=== PATIENT | female | born 1955 | race Caucasian/White ===

== ENCOUNTER 2018-06-10 12:31 | Emergency (ER) | payer BC ==
[2018-06-10 13:22] VITALS: BP 141/77
--- NOTE | 2018-06-10 14:51 | UC ---
Throat Pain/Nasal Juan F HPI - HPI Summary HPI Summary: 63-year-old woman comes in with a chief complaint of sore throat for 4 days. Throat pain is getting worse rather than getting better. She tries over-the- counter medications which helped slightly. No recent fevers no chest congestion or shortness of breath. No ear pain. Pain is worse with swallowing. - History of Current Complaint Chief Complaint: UCGeneralIllness Stated Complaint: ST Time Seen by Provider: 06/10/18 14:41 Pain Intensity: 8 - Allergies/Home Medications Allergies/Adverse Reactions: Allergies Allergy/AdvReac Type Severity Reaction Status Date / Time No Known Allergies Allergy Verified 06/10/18 13:19 Home Medications: Home Medications Loratadine [Allergy Relief] 2 tab PO DAILY 06/10/18 [History Confirmed 06/10/18] PMH/Surg Hx/FS Hx/Imm Hx Previously Healthy: Yes - Surgical History Surgical History: Yes Surgery Procedure, Year, and Place: 3 foot surgeries. x 2 - Social History Alcohol Use: Weekly Substance Use Type: None Smoking Status (MU): Former Smoker Review of Systems All Other Systems Reviewed And Are Negative: Yes Constitutional: Positive: Negative Skin: Positive: Negative Eyes: Positive: Negative ENT: Positive: Sore Throat, Nasal Discharge Respiratory: Positive: Negative Cardiovascular: Positive: Negative Gastrointestinal: Positive: Negative Motor: Positive: Negative Neurovascular: Positive: Negative Musculoskeletal: Positive: Negative Neurological: Positive: Negative Psychological: Positive: Negative Is Patient Immunocompromised?: No Physical Exam Triage Information Reviewed: Yes Appearance: Well-Appearing, No Pain Distress, Well-Nourished Vital Signs: Initial Vital Signs Temp 98.6 F 06/10/18 13:17 Pulse 86 06/10/18 13:17 Resp 15 06/10/18 13:17 BP 141/77 06/10/18 13:17 Pulse Ox 99 06/10/18 13:17 Vital Signs Reviewed: Yes Eye Exam: Normal Eyes: Positive: Conjunctiva Clear ENT: Positive: Pharyngeal erythema, TMs normal Neck exam: Normal Neck: Positive: Supple Respiratory Exam: Normal Respiratory: Positive: Lungs clear, Normal breath sounds, No respiratory distress Cardiovascular: Positive: RRR Musculoskeletal Exam: Normal Musculoskeletal: Positive: Strength Intact, ROM Intact Neurological Exam: Normal Neurological: Positive: Alert, Muscle Tone Normal Psychological Exam: Normal Psychological: Positive: Age Appropriate Behavior Skin Exam: Normal Throat Pain/Nasal Course/Dx - Course Course Of Treatment: Patient has a history of mastoid infection. Her main concern today is keeping any infection from spreading to her mastoid. We discussed viral versus bacterial infections and at this time the patient prefers to be on an antibiotic. - Differential Dx/Diagnosis Provider Diagnosis: Pharyngitis Discharge - Sign-Out/Discharge Documenting (check all that apply): Patient Departure All imaging exams completed and their final reports reviewed: No Studies - Discharge Plan Condition: Stable Disposition: HOME Prescriptions: Amoxicillin/Clavulanate TAB* [Augmentin TAB 875*] 875 mg PO BID #20 tab Patient Education Materials: Pharyngitis (ED) Referrals: Song Avina MD [Primary Care Provider] - Additional Instructions: FOLLOW UP WITH YOUR DOCTOR IF NOT COMPLETELY IMPROVED. GET RECHECKED FOR ANY WORSENING OF YOUR CONDITION OR QUESTIONS OR CONCERNS. - Billing Disposition and Condition Condition: STABLE Disposition: Home
== END 2018-06-10 14:59 | disposition home or self-care (01) ==
LOC: UCCORT 12:31
DX: J02.9 Acute pharyngitis, unspecified (principal); Z87.891 Personal history of nicotine dependence
CPT/HCPCS: 87651; 99212; G0463

== ENCOUNTER 2019-02-10 10:17 | Emergency (ER) | payer BC ==
[2019-02-10 10:33] VITALS: BP 112/76
--- NOTE | 2019-02-10 10:58 | UC ---
Upper Extremity HPI - HPI Summary HPI Summary: pain right upper arm x 1 day pain is 8 out of 10 , pain is dull and achy worse with movement of the arm better with not moving the arm + injury as she tried to catch the hallman from falling felt a pop no swelling, no bruising + weakness - History of Current Complaint Chief Complaint: UCUpperExtremity Stated Complaint: RT ARM PAIN Time Seen by Provider: 02/10/19 10:38 Hx Obtained From: Patient Onset/Duration: Sudden Onset, Lasting Days - 1, Still Present Severity Initially: Moderate Severity Currently: Moderate Pain Intensity: 8 Location Of Pain: Is Discrete @ - right upper arm Character: Dull, Aching Aggravating Factor(s): Movement, Lifting, Flexion, Extension, Internal/External Rotation Alleviating Factor(s): Rest Associated Signs And Symptoms: Positive: Weakness. Negative: Swelling, Redness , Bruising, Fever, Numbness/Tingling - Allergies/Home Medications Allergies/Adverse Reactions: Allergies Allergy/AdvReac Type Severity Reaction Status Date / Time No Known Allergies Allergy Verified 02/10/19 10:32 PMH/Surg Hx/FS Hx/Imm Hx Cardiovascular History: Hypertension - Surgical History Surgical History: Yes Surgery Procedure, Year, and Place: 3 foot surgeries. x 2 - Family History Known Family History: Positive: Hypertension - Social History Alcohol Use: Daily Alcohol Amount: 2 LIQUOR DRINKS Substance Use Type: None Smoking Status (MU): Former Smoker Review of Systems All Other Systems Reviewed And Are Negative: Yes Constitutional: Positive: Negative Skin: Positive: Negative Eyes: Positive: Negative Is Patient Immunocompromised?: No Physical Exam Triage Information Reviewed: Yes Appearance: Well-Appearing, Well-Nourished, Pain Distress Vital Signs: Initial Vital Signs Temp 98.1 F 02/10/19 10:29 Pulse 81 02/10/19 10:29 Resp 16 02/10/19 10:29 BP 112/76 02/10/19 10:29 Pulse Ox 100 02/10/19 10:29 Vital Signs Reviewed: Yes Eye Exam: Normal Eyes: Positive: Conjunctiva Clear ENT: Positive: Normal ENT inspection, Hearing grossly normal, Pharynx normal Neck: Positive: Supple, Nontender, No Lymphadenopathy Respiratory: Positive: Chest non-tender, Lungs clear, Normal breath sounds Cardiovascular: Positive: RRR, No Murmur, Pulses Normal Musculoskeletal: Positive: Other: - right upper arm: no swelling , no tendernss , no bruisting pain with active and pasive ROM . limited ROM on flexion and abduction limited strength Diagnostics - Radiology No standard instances Radiology Interpretation Completed By: Radiologist Summary of Radiographic Findings: xray right shoulder : MILD OSTEOARTHRITIS. NO ACUTE OSSEOUS INJURY. IF SYMPTOMS PERSIST, RECOMMEND REPEAT IMAGING. Upper Extremity Course/Dx - Differential Dx/Diagnosis Provider Diagnosis: Injury of right rotator cuff Discharge ED - Sign-Out/Discharge Documenting (check all that apply): Patient Departure All imaging exams completed and their final reports reviewed: Yes - Discharge Plan Condition: Stable Disposition: HOME Patient Education Materials: Rotator Cuff Injury (ED) Referrals: Song Avina MD [Primary Care Provider] - Juanpablo Hughes MD [Medical Doctor] - As Soon As Possible - Billing Disposition and Condition Condition: STABLE Disposition: Home
== END 2019-02-10 11:19 | disposition home or self-care (01) ==
LOC: UCCORT 10:17
DX: S46.001A Unspecified injury of muscle(s) and tendon(s) of the rotator cuff of right shoulder, initial encounter (principal); M19.011 Primary osteoarthritis, right shoulder; I10 Essential (primary) hypertension; Z87.891 Personal history of nicotine dependence; X58.XXXA Exposure to other specified factors, initial encounter; Y92.9 Unspecified place or not applicable
CPT/HCPCS: 99211; G0463

== ENCOUNTER 2019-03-24 07:17 | Emergency (ER) | payer BC ==
[2019-03-24 07:31] VITALS: BP 118/80
--- NOTE | 2019-03-24 07:44 | UC ---
Ear Complaint HPI - HPI Summary HPI Summary: 63 yo woman with a history of past ear infection (states "mastoiditis"--treated with one dose of iv antibiotics so likely not) presents for evaluation of right ear pain which onset one day ago. No fever, does have a sore throat. - History of Current Complaint Chief Complaint: UCEar Stated Complaint: RT EAR COMPLAINT Time Seen by Provider: 03/24/19 07:34 Hx Obtained From: Patient ?: No Onset/Duration: Sudden Onset Severity Initially: Moderate Severity Currently: Moderate Pain Intensity: 6 Alleviating Factors: Nothing Associated Signs/Symptoms: Positive: URI Symptoms - Allergies/Home Medications Allergies/Adverse Reactions: Allergies Allergy/AdvReac Type Severity Reaction Status Date / Time No Known Allergies Allergy Verified 03/24/19 07:28 Home Medications: Home Medications Ibuprofen TAB* [Advil TAB*] 400 mg PO Q6H PRN 03/24/19 [History Confirmed ] PMH/Surg Hx/FS Hx/Imm Hx Cardiovascular History: Hypertension - Surgical History Surgical History: Yes Surgery Procedure, Year, and Place: 3 foot surgeries. x 2 - Family History Known Family History: Positive: Diabetes - Social History Occupation: Employed Part-time Alcohol Use: Daily Alcohol Amount: 2 LIQUOR DRINKS Substance Use Type: None Smoking Status (MU): Former Smoker Length of Time of Smoking/Using Tobacco: On and Off for 15 Years When Did the Patient Quit Smoking/Using Tobacco: ~1998 Review of Systems All Other Systems Reviewed And Are Negative: Yes Constitutional: Positive: Negative Skin: Positive: Negative Eyes: Positive: Negative ENT: Positive: Sore Throat, Ear Ache Respiratory: Positive: Negative Cardiovascular: Positive: Negative Gastrointestinal: Positive: Negative Genitourinary: Positive: Negative Motor: Positive: Negative Neurovascular: Positive: Negative Musculoskeletal: Positive: Negative Neurological: Positive: Headache Psychological: Positive: Negative Is Patient Immunocompromised?: No Physical Exam Triage Information Reviewed: Yes Appearance: Well-Appearing, Pain Distress - mild Vital Signs: Initial Vital Signs Temp 97.9 F 03/24/19 07:27 Pulse 82 03/24/19 07:27 Resp 15 03/24/19 07:27 BP 118/80 03/24/19 07:27 Pulse Ox 97 03/24/19 07:27 ENT: Positive: Pharyngeal erythema, TM bulging - on right, TM red - on right, without mastoid tenderness or pre- or posterior auricular adenopathy. Neck: Positive: Supple, Nontender, No Lymphadenopathy Respiratory: Positive: Lungs clear, Normal breath sounds Cardiovascular: Positive: RRR, No Murmur Musculoskeletal Exam: Normal Musculoskeletal: Positive: Strength Intact Neurological: Positive: Alert Psychological Exam: Normal Skin Exam: Normal Ear Complaint Course/Dx - Course Course Of Treatment: Amoxicillin for treatment of acute right otitis media. - Differential Dx/Diagnosis Differential Diagnosis/HQI/PQRI: Cellulitis, Otitis Externa, Otitis Media, URI Provider Diagnosis: Right otitis media with effusion Discharge ED - Sign-Out/Discharge Documenting (check all that apply): Patient Departure All imaging exams completed and their final reports reviewed: No Studies - Discharge Plan Condition: Good Disposition: HOME Prescriptions: Amoxicillin PO (*) [Amoxicillin 875 MG (*)] 875 mg PO BID #14 tab Patient Education Materials: Ear Infection (ED) Referrals: Song Avina MD [Primary Care Provider] - Additional Instructions: Please take the full course of antibiotics. Use acetaminophen as needed for relief of pain. Follow up if pain persists or if you have hearing loss. - Billing Disposition and Condition Condition: GOOD Disposition: Home
== END 2019-03-24 07:55 | disposition home or self-care (01) ==
LOC: UCCORT 07:17
DX: H65.191 Other acute nonsuppurative otitis media, right ear (principal); I10 Essential (primary) hypertension; Z87.891 Personal history of nicotine dependence
CPT/HCPCS: 99212; G0463

== ENCOUNTER 2019-07-03 09:04 | Emergency (ER) | payer BC ==
[2019-07-03 09:26] VITALS: BP 135/78
--- NOTE | 2019-07-03 09:27 | UC ---
Ear Complaint HPI - HPI Summary HPI Summary: 64-year-old female who has had a right earache over the past 2 days. She has a history of mastoiditis approximate 7 years ago however she states this does not feel that way. She has had mild cold symptoms past 2 days - History of Current Complaint Chief Complaint: UCEar Stated Complaint: R EAR PAIN Time Seen by Provider: 07/03/19 09:08 Hx Obtained From: Patient ?: No Onset/Duration: Gradual Onset Severity Initially: Mild Severity Currently: Mild Pain Intensity: 6 Aggravating Factors: Nothing Alleviating Factors: Nothing Associated Signs/Symptoms: Positive: URI Symptoms - Allergies/Home Medications Allergies/Adverse Reactions: Allergies Allergy/AdvReac Type Severity Reaction Status Date / Time cantalope Allergy Unknown scratchy Uncoded 07/03/19 09:15 troat Home Medications: Home Medications Cholecalciferol (Vitamin D3) [Vitamin D3] 1,000 unit PO DAILY 08/10/18 [History Confirmed 07/03/19] Multivitamins/Minerals TAB* [Theragran/minerals TAB*] 1 tab PO DAILY 08/10/18 [ History Confirmed 07/03/19] Vitamin B Complex CAP* [B Complex CAP*] 1 cap PO DAILY 08/10/18 [History Confirmed 07/03/19] Ibuprofen TAB* [Advil TAB*] 400 mg PO Q6H PRN 03/24/19 [History Confirmed ] Amoxicillin PO (*) [Amoxicillin 875 MG (*)] 875 mg PO BID 10 Days #20 tab [Rx] Valsartan TAB* [Diovan TAB*] 80 mg PO DAILY 07/03/19 [History Confirmed 07/03/19 ] PMH/Surg Hx/FS Hx/Imm Hx Previously Healthy: Yes Cardiovascular History: Hypertension - Surgical History Surgical History: Yes Surgery Procedure, Year, and Place: 3 foot surgeries. x 2 - Family History Known Family History: Positive: Hypertension, Diabetes - Social History Lives: With Family Alcohol Use: Daily Alcohol Amount: 2 beers a day Substance Use Type: None Smoking Status (MU): Former Smoker Length of Time of Smoking/Using Tobacco: On and Off for 15 Years When Did the Patient Quit Smoking/Using Tobacco: ~1998 Review of Systems All Other Systems Reviewed And Are Negative: Yes ENT: Positive: Ear Ache, Sinus Congestion Is Patient Immunocompromised?: No Physical Exam Triage Information Reviewed: Yes Appearance: Well-Appearing, No Pain Distress, Well-Nourished Vital Signs: Initial Vital Signs Temp 98.3 F 07/03/19 09:18 Pulse 76 07/03/19 09:18 Resp 18 07/03/19 09:18 BP 135/78 07/03/19 09:18 Pulse Ox 99 07/03/19 09:18 Vital Signs Reviewed: Yes Eyes: Positive: Conjunctiva Clear ENT: Positive: Pharynx normal, TM red - Left tympanic membrane is pearly-choe with good landmarks and light reflex. Right tympanic membrane is erythematous with moderate landmarks and mild bulging., Uvula midline Neck: Positive: Supple, Nontender, No Lymphadenopathy Respiratory: Positive: Lungs clear, Normal breath sounds, No respiratory distress, No accessory muscle use Cardiovascular: Positive: RRR, No Murmur, Pulses Normal, Brisk Capillary Refill Musculoskeletal Exam: Normal Neurological Exam: Normal Psychological Exam: Normal Skin Exam: Normal Ear Complaint Course/Dx - Course Course Of Treatment: Patient's comfortable here. - Differential Dx/Diagnosis Provider Diagnosis: Right otitis media Discharge ED - Sign-Out/Discharge Documenting (check all that apply): Patient Departure All imaging exams completed and their final reports reviewed: No Studies - Discharge Plan Condition: Good Disposition: HOME Prescriptions: Amoxicillin PO (*) [Amoxicillin 875 MG (*)] 875 mg PO BID 10 Days #20 tab Patient Education Materials: Ear Infection (ED) Referrals: Song Avina MD [Primary Care Provider] - Additional Instructions: Increase fluids, warm saltwater gargles, throat lozenges for comfort. May take Tylenol every 4 hours and alternate with ibuprofen every 8 hours for pain. Definite follow-up with your primary care provider if no improvement in 3 or 4 days. - Billing Disposition and Condition Condition: GOOD Disposition: Home
== END 2019-07-03 09:43 | disposition home or self-care (01) ==
LOC: UCCORT 09:04
DX: H66.91 Otitis media, unspecified, right ear (principal); I10 Essential (primary) hypertension; R09.81 Nasal congestion; Z91.018 Allergy to other foods; Z79.899 Other long term (current) drug therapy; Z87.891 Personal history of nicotine dependence
CPT/HCPCS: 99212; G0463

== ENCOUNTER 2019-07-16 09:20 | Emergency (ER) | payer BC ==
[2019-07-16 11:04] VITALS: BP 145/81
--- NOTE | 2019-07-16 12:50 | UC ---
Throat Pain/Nasal Juan F HPI - HPI Summary HPI Summary: Pt presents with c/o left side throat pain. Pt was treated for OM beginning on 07/03/19. Pt states she began with ST 1-2 days. ago. Denies fever, chills, difficulty swallowing. - History of Current Complaint Chief Complaint: UCRespiratory Stated Complaint: RECHECK Time Seen by Provider: 07/16/19 10:30 Hx Obtained From: Patient ?: No Onset/Duration: Sudden Onset Severity: Mild Pain Intensity: 5 Pain Scale Used: 0-10 Numeric Cough: None Associated Signs & Symptoms: Positive: Negative - Epiglottits Risk Factors Epiglottis Risk Factors: Negative - Allergies/Home Medications Allergies/Adverse Reactions: Allergies Allergy/AdvReac Type Severity Reaction Status Date / Time cantalope Allergy Unknown scratchy Uncoded 07/16/19 10:14 troat Home Medications: Home Medications Cholecalciferol (Vitamin D3) [Vitamin D3] 1,000 unit PO DAILY 08/10/18 [History Confirmed 07/16/19] Multivitamins/Minerals TAB* [Theragran/minerals TAB*] 1 tab PO DAILY 08/10/18 [ History Confirmed 07/16/19] Vitamin B Complex CAP* [B Complex CAP*] 1 cap PO DAILY 08/10/18 [History Confirmed 07/16/19] Ibuprofen TAB* [Advil TAB*] 400 mg PO Q6H PRN 03/24/19 [History Confirmed ] Amoxicillin PO (*) [Amoxicillin 875 MG (*)] 875 mg PO BID 10 Days #20 tab [Rx Confirmed 07/16/19] Valsartan TAB* [Diovan TAB*] 80 mg PO DAILY 07/03/19 [History Confirmed 07/16/19 ] Acetaminophen [APAP] 650 mg PO ONCE PRN 07/16/19 [History Confirmed 07/16/19] PMH/Surg Hx/FS Hx/Imm Hx Previously Healthy: Yes - Surgical History Surgical History: Yes Surgery Procedure, Year, and Place: 3 foot surgeries. x 2 - Family History Known Family History: Positive: Hypertension, Diabetes - Social History Occupation: Retired Alcohol Use: Daily Alcohol Amount: 2 beers a day Substance Use Type: None Smoking Status (MU): Former Smoker Length of Time of Smoking/Using Tobacco: On and Off for 15 Years When Did the Patient Quit Smoking/Using Tobacco: ~1998 Review of Systems All Other Systems Reviewed And Are Negative: Yes Constitutional: Positive: Negative Skin: Positive: Negative Eyes: Positive: Negative ENT: Positive: Sore Throat Respiratory: Positive: Negative Cardiovascular: Positive: Negative Gastrointestinal: Positive: Negative Genitourinary: Positive: Negative Motor: Positive: Negative Neurovascular: Positive: Negative Musculoskeletal: Positive: Negative Neurological/Mental Status: Positive: Negative Psychological: Positive: Negative Is Patient Immunocompromised?: No Physical Exam Triage Information Reviewed: Yes Appearance: Well-Appearing Vital Signs: Initial Vital Signs Temp 98.1 F 07/16/19 10:01 Pulse 64 07/16/19 10:01 Resp 12 07/16/19 10:01 BP 145/81 07/16/19 10:01 Pulse Ox 100 07/16/19 10:01 Vital Signs Reviewed: Yes Eye Exam: Normal ENT Exam: Normal Dental Exam: Normal Neck exam: Normal Respiratory: Positive: No respiratory distress Musculoskeletal Exam: Normal Neurological Exam: Normal Psychological Exam: Normal Skin Exam: Normal Throat Pain/Nasal Course/Dx - Differential Dx/Diagnosis Differential Diagnosis/HQI/PQRI: Pharyngitis, URI Provider Diagnosis: Sore throat (viral) Discharge ED - Sign-Out/Discharge Documenting (check all that apply): Patient Departure All imaging exams completed and their final reports reviewed: No Studies - Discharge Plan Condition: Stable Disposition: HOME Patient Education Materials: Viral Syndrome (ED) Referrals: Song Avina MD [Primary Care Provider] - If Needed - Billing Disposition and Condition Condition: STABLE Disposition: Home
== END 2019-07-16 11:25 | disposition home or self-care (01) ==
LOC: UCCORT 09:20
DX: J02.8 Acute pharyngitis due to other specified organisms (principal); Z91.018 Allergy to other foods; Z87.891 Personal history of nicotine dependence
CPT/HCPCS: 87651; 99211; G0463

== ENCOUNTER 2024-05-14 07:23 | Observation (INO) ==
[~2024-05-14 07:23] MED LIST: Metoclopramide 5 MG/ML VIAL (10 mg) IV PRN; NS 0.45% 1000 ml BAG 1,000 ML IV SCH; Naloxone 0.4 mg VIAL 0.4 mg/ml 1 ml VIAL IV PRN; Ondansetron 4 mg VIAL 2 MG/ML 2 ml VIAL IV PRN
[2024-05-14 08:08] LABS: Rapid COVID-19 Molecular Undetected (Undetected)
[2024-05-14] MEDS ORDERED: ceFAZolin 2 GM PREMIX 2 GM/50 ML BAG ONE (08:37)
[2024-05-14] MEDS: Lactated Ringers 1000 ml BAG 1,000 ML IV SCH ×2 (08:42→14:52)
[2024-05-14] MEDS: Buffered Lidocaine 1% SYRIN 1 ml INTRADERM ONE (08:43)
[2024-05-14] MEDS ORDERED: Lidocaine 2% PF 5 ML VIAL ONE ×2 (09:08→09:34)
[2024-05-14] MEDS ORDERED: Midazolam 2 mg/2 ml VIAL 1 mg/ml 2 ml VIAL (2 mg) ONE (09:08)
[2024-05-14] MEDS ORDERED: fentaNYL 100 mcg/2 ml 50 MCG/ML VIAL ONE ×3 (09:08→13:13)
[2024-05-14] MEDS ORDERED: Propofol 10 MG/ML 20 ML BTL ONE (09:10)
[2024-05-14] MEDS ORDERED: ROPIVACAINE 5 MG/ML 30 ML BTL (0.5%) ONE ×2 (09:26→09:34)
[2024-05-14] MEDS ORDERED: Tranexamic Acid 1 GM/100ML BAG 2,000 MG/200 ML BAG IV ONE (10:13)
[2024-05-14] MEDS ORDERED: Dexamethasone IV 4 MG/ML VIAL 1 ml VIAL ONE ×2 (10:42)
[2024-05-14] MEDS ORDERED: Ondansetron 4 mg VIAL 2 MG/ML 2 ml VIAL ONE (11:18)
[2024-05-14] MEDS ORDERED: Lactulose 30 ml UDC PO PRN (12:52)
[2024-05-14] MEDS ORDERED: Ondansetron ODT 4 mg TAB 4 MG TAB PO PRN (12:52)
[2024-05-14] MEDS ORDERED: Calcium Carb (TUMS) 500 mg CHEW TAB PO PRN (12:52)
[2024-05-14] MEDS ORDERED: Ondansetron 4 mg VIAL 2 MG/ML 2 ml VIAL IV PRN (12:52)
[2024-05-14] MEDS ORDERED: Magnesium Hydroxide LIQ 30 ML UDC PO PRN (12:52)
[2024-05-14] MEDS: fentaNYL 100 mcg/2 ml 50 MCG/ML VIAL IV PRN (13:16)
[2024-05-14] MEDS: Acetaminophen IV 1 GM/100ML 1,000 MG/100 ML BAG IV ONE (13:58)
[2024-05-14] MEDS: Scopolamine 1 mg/72hr PATCH TRANSDERM ONE (13:58)
[2024-05-14] MEDS: Morphine 2 MG/ML SYRINGE IV PRN (19:29)
[2024-05-14] MEDS: Magnesium Hydroxide LIQ 30 ML UDC PO SCH (19:29)
[2024-05-14] MEDS: ceFAZolin 2 GM PREMIX 2 GM/50 ML BAG IV SCH (19:30)
[2024-05-15 05:58] LABS: Hematocrit 28.8 % (35-45); Mean Platelet Volume 8.9 fL (7.5-11.2); Platelet Count 155 10^3/uL (150-450)
[2024-05-15 06:19] LABS: Calcium 8.6 mg/dL (8.6-10.3); Creatinine, Serum 0.85 mg/dL (0.51-0.95); Potassium 4.4 mmol/L (3.5-5.0); eGFR CKD-EPI 74.1 (>60)
[2024-05-15] MEDS: Vitamin THERAPEUTIC TAB PO SCH (09:38)
[2024-05-15 10:03] VITALS: BP 125/75
== END 2024-05-15 11:52 | disposition home or self-care (01) ==
LOC: OR 07:23 → SSU 07:23
PROVIDERS: ADMIT Orthopaedic Surgery Adult Reconstructive Orthopaedic Surgery; ATTEND Orthopaedic Surgery Adult Reconstructive Orthopaedic Surgery